=== PATIENT | male | born 1990 | race African-American/Black ===

== ENCOUNTER → 2016-08-10 | Emergency (ER) | payer SELFPAY ==
--- NOTE | 2016-08-10 08:47 | NUR ---
PT CALLED TO TRIAGE, PT NOT IN WAITING ROOM
--- NOTE | 2016-08-10 09:22 | NUR ---
PT CALLED TO TRIAGE, PT NOT IN WAITING ROOM
--- NOTE | 2016-08-10 09:25 | NUR ---
Patient eloped from facility. ER MD notified.
== END | disposition left against medical advice (07) ==
LOC: ER 08:43
DX: Z53.21 Procedure and treatment not carried out due to patient leaving prior to being seen by health care provider (principal)